=== PATIENT | female | born 1980 | race American Indian/Alaskan Native ===

== ENCOUNTER 2020-08-15 09:18 | Emergency (ER) | payer OTHER, MEDICAID ==
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
[2020-08-15 10:53] VITALS: BP 110/65
== END 2020-08-15 11:32 | disposition home or self-care (01) ==
LOC: ED 09:18
DX: M25.561 Pain in right knee (principal); M25.562 Pain in left knee; M25.522 Pain in left elbow; M25.542 Pain in joints of left hand; M79.652 Pain in left thigh; Z79.899 Other long term (current) drug therapy; V49.49XA Driver injured in collision with other motor vehicles in traffic accident, initial encounter; W22.10XA Striking against or struck by unspecified automobile airbag, initial encounter; Y93.89 Activity, other specified; Y92.410 Unspecified street and highway as the place of occurrence of the external cause; Y99.8 Other external cause status
CPT/HCPCS: 99282